=== PATIENT | female | born 1990 | race Asian ===

== ENCOUNTER 2022-08-17 12:00 | Outpatient (CLI) | payer BC, SELFPAY ==
--- NOTE | ~2022-08-17 | XR_ITS ---
XR hip RT min 2V DATE: 08/17/2022 12:34 INDICATION: Right hip pain for 2+ years. No injury. TECHNIQUE: AP and lateral views COMPARISON: None FINDINGS: Catheter tubing overlies the pelvis. There are sutures of left lower mid pelvis. Pubic symphysis and right sacral iliac joint are intact. No fracture or dislocation, avascular necrosis or bone destruction of right hip. Right hip joint spac e appears well preserved. IMPRESSION: Negative right hip Reviewed, dictated and finalized at location A. IMPRESSION: Negative right hip
--- NOTE | ~2022-08-17 | XR_ITS ---
XR wrist RT min 3V DATE: 08/17/2022 12:35 INDICATION: Wrist pain for 2 weeks. No injury. TECHNIQUE: 4 views COMPARISON: None FINDINGS: No fracture or dislocation, periosteal reaction or bone destruction, joint space narrowing, erosive change or chondrocalcinosis. IMPRESSION: Negative Reviewed, dictated and finalized at location A. IMPRESSION: Negative
--- NOTE | ~2022-08-17 | XR_ITS ---
XR hip LT min 2V DATE: 08/17/2022 12:34 INDICATION: Left hip pain for 2+ years. No injury. TECHNIQUE: AP and lateral views COMPARISON: None FINDINGS: Shunt catheter tubing overlies the pelvis. Radiopaque sutures overlie the lower mid pelvis. No fracture or dislocation, avascular necrosis or bone destruction of the left hip. Left hip joint sp bryce is well preserved. Pubic symphysis and left sacroiliac joint are intact IMPRESSION: Negative left hip Reviewed, dictated and finalized at location A. IMPRESSION: Negative left hip
--- NOTE | ~2022-08-17 | XR_ITS ---
EXAMINATION: XR chest 2V 08/17/2022 12:34 INDICATION: Nicotine dependence. PROCEDURE: 2 view chest COMPARISON: No prior studies for comparison. FINDINGS: The lungs are clear. The cardiomediastinal silhouette is within normal limits. There are no pleural effusions. There is no pneumothorax suspected. Prominent nipple shadows. IMPRESSION: 1: NO ACUTE CARDIOPULMONARY DISEASE. Reviewed, dictated and finalized at location B.
[2022-08-17 13:08] LABS: Hematocrit 40.5 % (37.0-47.0); Hemoglobin 13.4 g/dL (12.0-15.0); Mean Corpuscular HGB Conc 33.1 g/dl (32-36); Mean Corpuscular Hemoglobin 32.5 pg (26-34); Mean Corpuscular Volume 98.3 fl (80-100); Mean Platelet Volume 9.7 fl (7.4-10.4); Platelet Count Result 147 k/mm3 (150-375); Red Blood Count 4.12 M/mm3 (4.2-5.4); White Blood Count 3.6 K/mm3 (4.5-10.0)
[2022-08-17 13:17] LABS: Alanine Aminotransferase 35 U/L (6-35); Albumin Level 4.7 g/dL (3.5-5.1); Alkaline Phosphatase 47 U/L (38-126); Anion Gap 13 mmol/L (8-16); Aspartate Amino Transferase 28 U/L (14-36); Bilirubin,Total 0.6 mg/dL (0.2-1.3); Blood Urea Nitrogen 13 mg/dL (7-17); Carbon Dioxide 27 mmol/L (22-30); Chloride 101 mmol/L (98-107); Cholesterol 160 mg/dL (0-200); Estimated Glomerular Filt Rate > 60; Glucose 87 mg/dL (65-110); HDL Direct 61 mg/dL; Potassium 3.8 mmol/L (3.4-5.0); Sodium 141 mmol/L (137-145); Triglycerides 43 mg/dL (<150)
[2022-08-17 13:28] LABS: LDL Cholesterol Direct 74 mg/dL
[2022-08-17 13:40] LABS: Microalbumin Urine Random 6.7 mg/L (0-16.7)
[2022-08-17 13:54] LABS: Free T4 Free Thyroxine 1.21 ng/mL (0.78-2.19); Vitamin D 25 Hydroxy 28.1 ng/mL
[2022-08-17 13:59] LABS: HIV 1/2 Ab P24 Ag Result Negative (Negative)
[2022-08-17 14:09] LABS: Hepatitis B Surface Antigen Positive (Negative)
[2022-08-17 14:10] LABS: HAV RESULT Negative (Negative); Hepatitis B Core IgM Result Negative (Negative)
[2022-08-17 14:22] LABS: Hepatitis C Virus Antibody Negative (Negative)
[2022-08-17 15:05] LABS: Rapid Plasma Reagin Non-Reactive (NonReactive)
== END 2022-08-17 12:01 | disposition home or self-care (01) ==
LOC: ANHIMG 12:08
PROVIDERS: PCP Emergency Medicine; Visit Provider Emergency Medicine
DX: Z00.00 Encounter for general adult medical examination without abnormal findings (principal); F32.9 Major depressive disorder, single episode, unspecified; Z12.2 Encounter for screening for malignant neoplasm of respiratory organs; Z87.891 Personal history of nicotine dependence
CPT/HCPCS: 36415; 71046; 73110; 73502; 80053; 80061; 80074; 82043; 82306; 84439; 84443; 85027; 86592; 86703; 87086; 87088; 87491; 87591; G0432